=== PATIENT | female | born 1960 | race Caucasian/White ===

== ENCOUNTER 2017-05-24 08:00 | Inpatient (IN) | payer BC ==
--- NOTE | 2017-05-23 09:50 | HP ---
Satellite [facility] - Chief Complaint Chief Complaint: left hip pain - Past Medical History Allergies/Adverse Reactions: Allergies Allergy/AdvReac Type Severity Reaction Status Date / Time hepatitis B virus vaccine Allergy Severe FEVER, Verified 05/20/17 10:55 HEADACHE latex Allergy Severe Itching Verified 05/20/17 10:53 - Current Medications Current Medications: Home Medications Medication Instructions Recorded Ibuprofen 800 mg PO Q6H PRN 05/20/17 Naproxen Sodium [Aleve] 440 mg PO BID 05/20/17 Satellite Physical Exam - Physical Examination General Appearance: Well Nourished, Well Developed, Alert & Oriented x3 ENT: Clear Lung: Normal air movement Heart: Regular rate & rhythm Extremities: Other (left hip- + ttp, decr rom, nvi xrays show grade 4 hip djd) Neurological: Intact, Alert, Oriented Satellite Impression/Plan - Impression/Plan Impression: left hip djd Operative Procedure: left jacobo thr Date to be Performed: 05/24/17
[2017-05-24] MEDS ORDERED: CELECOXIB 200 MG CAPSULE PO ONE (08:58)
[2017-05-24] MEDS ORDERED: CEFAZOLIN 2 GM in DEXTROSE 5%-WATER - 50 ML IVPB ONE (08:58)
[2017-05-24] MEDS ORDERED: GABAPENTIN 300 MG CAPSULE (FP) PO ONE (08:58)
[2017-05-24] MEDS ORDERED: TRANEXAMIC ACID 1000 MG/10 ML VIAL IVPUSH ONE (08:58)
[2017-05-24] MEDS ORDERED: oxyCODONE HCL 10 MG SUSTAINED ACTING TABLET ONE (09:26)
[2017-05-24] MEDS ORDERED: oxyCODONE HCL 10 MG SUSTAINED ACTING TABLET PO ONE (09:35)
[2017-05-24 09:50] VITALS: BMI 33.3
[2017-05-24] MEDS ORDERED: DEXAMETHASONE SOD PHOSPHATE/PF 10 MG/ML SDV ONE (10:37)
[2017-05-24] MEDS ORDERED: ROPIVACAINE HCL 0.5% 30ML VIAL ONE (10:38)
[2017-05-24] MEDS ORDERED: MIDAZOLAM HCL 2 MG/2 ML SINGLE DOSE VIAL ONE (10:38)
[2017-05-24] MEDS ORDERED: ceFAZolin SODIUM 1 GM VIAL ONE (10:44)
[2017-05-24] MEDS ORDERED: VANCOMYCIN 1,000 MG VIAL (RESTRICTED TO ID ONLY) ONE (10:44)
[2017-05-24] MEDS ORDERED: VANCOMYCIN 1,000 MG VIAL (RESTRICTED TO ID ONLY) IVPB ONE (12:35)
[2017-05-24] MEDS ORDERED: MAG HYDROX/AL HYDROX/SIMETH 30 ML UNIT-DOSE CUP PO PRN (12:54)
[2017-05-24] MEDS ORDERED: ONDANSETRON 4 MG/2 ML VIAL IVPUSH PRN (12:54)
[2017-05-24] MEDS ORDERED: MAGNESIUM HYDROX 2400MG/30ML ORAL SUSPENSION 30 ML CUP PO PRN (12:54)
--- NOTE | 2017-05-24 12:56 | OP ---
Operative Note - Note: Operative Date: 05/24/17 (jensen) Pre-Operative Diagnosis: left hip djd Operation: left jacobo thr Post-Operative Diagnosis: Same as Pre-op Surgeon: Ramesh Mendosa Rubber Mixer: Jace Castellano Anesthesiologist/GOLF CART ATTENDANT: Iman Summers Anesthesia: Spinal, Local Specimens Removed: femoral head Estimated Blood Loss (mls): 200 Operative Report Dictated: Yes
[2017-05-24] MEDS ORDERED: LACTATED RINGERS SOLUTION 1,000 ML IV SCH (13:00)
[2017-05-24] MEDS ORDERED: ACETAMINOPHEN 325 MG TABLET (FP) PO ONE (14:15)
[2017-05-24] MEDS ORDERED: ACETAMINOPHEN 325 MG TABLET (FP) ONE (14:16)
[2017-05-24] MEDS ORDERED: oxyCODONE HCL 5 MG TABLET PO PRN (14:54)
[2017-05-24] MEDS ORDERED: oxyCODONE HCL 5 MG TABLET ONE (15:14)
[2017-05-24] MEDS: oxyCODONE HCL 5 MG TABLET PO PRN ×2 (15:15→18:38)
[2017-05-24] MEDS: ACETAMINOPHEN 325 MG TABLET (FP) PO SCH ×2 (15:25→22:08)
[2017-05-24] MEDS: CEFAZOLIN 2 GM/D5W 2 GM/50 ML ML IVPB SCH (21:00)
[2017-05-24] MEDS: oxyCODONE HCL 10 MG SUSTAINED ACTING TABLET PO SCH (22:07)
[2017-05-24] MEDS: GABAPENTIN 300 MG CAPSULE (FP) PO SCH (22:07)
[2017-05-24] MEDS: SENNOSIDES/DOCUSATE COMBO (SENNA PLUS) TABLET (UD) PO SCH (22:08)
[2017-05-25] MEDS: ACETAMINOPHEN 325 MG TABLET (FP) PO SCH ×4 (03:00→20:18)
[2017-05-25] MEDS: CEFAZOLIN 2 GM/D5W 2 GM/50 ML ML IVPB SCH (04:43)
[2017-05-25] MEDS: oxyCODONE HCL 5 MG TABLET PO PRN ×6 (06:42→23:19)
[2017-05-25 08:15] LABS: MCH 29.5 pg (25.7-33.7); MEAN CELL VOLUME 86.7 fl (80-96); PLATELET COUNT 226 K/MM3 (134-434); RDW 13.1 % (11.6-15.6); WHITE BLOOD COUNT 11.8 K/mm3 (4.0-10.8)
[2017-05-25] MEDS: ASPIRIN 325 MG TABLET PO SCH (08:27)
[2017-05-25] MEDS: PANTOPRAZOLE 40 MG TABLET (FP) PO SCH (09:13)
[2017-05-25] MEDS: GABAPENTIN 300 MG CAPSULE (FP) PO SCH ×2 (09:13→22:04)
[2017-05-25] MEDS: SENNOSIDES/DOCUSATE COMBO (SENNA PLUS) TABLET (UD) PO SCH ×2 (09:13→22:04)
[2017-05-25] MEDS: MULTIVITAMINS (DAILY MVI) TABLET (FP) PO SCH (09:13)
[2017-05-25] MEDS: oxyCODONE HCL 10 MG SUSTAINED ACTING TABLET PO SCH ×2 (09:16→22:03)
--- NOTE | 2017-05-25 09:49 | PN ---
Progress Note (short form) - Note Progress Note: Ortho Pt seen and examined s/p left jacobo thr pod #1 Selected Entries 05/25/17 05:24 Temperature 98.6 F Pulse Rate 72 Respiratory 18 Rate Blood Pressure 121/61 Laboratory Tests 05/25/17 07:45 WBC 11.8 H Hgb 12.6 Hct 37.2 Plt Count 226 dressing c/d/i, calf soft, nt nvi a/p PT hip precautions dvt ppx pain control d/c home tomorrow if stable
--- NOTE | 2017-05-25 09:51 | SPEC ---
DATE OF OPERATION: 05/24/2017 PREOPERATIVE DIAGNOSIS: Degenerative joint disease left hip. POSTOPERATIVE DIAGNOSIS: Degenerative joint disease left hip. PROCEDURE PERFORMED: Left total hip replacement with robotic-assisted navigation (MAKOplasty). SURGICAL ATTENDING: Ramesh Mendosa MD DINKEY LOCOMOTIVE OPERATOR: KEM Yadav ANESTHESIA: Regional and spinal. CLOSURE: A Grant total hip system with a 50 Press-Fit PSL cup, a 36-mm ceramic plus 7.5-mm head, and a number 6 Accolade II stem. Number 1 Vicryl for fascia, 0 and 2-0 subcutaneous, 3-0 Monocryl subcuticular, with skin glue for skin, 4-0 undyed Vicryl for pin sites. ESTIMATED BLOOD LOSS: 100 mL. COMPLICATIONS: None. CONDITION: To the recovery room in stable condition. DESCRIPTION OF PROCEDURE: The patient was taken to the operating room on May 24, 2017. General and regional anesthesia was administered by the anesthesiologist. IV Kefzol and TXA were administered prophylactically prior to the case. The patient was placed in the lateral decubitus position will all prominences well-padded. The left hip area was prepped and draped in the usual sterile fashion. Using 3 small stab incisions over the iliac crest, 3 threaded pins were drilled in power fashion through the 2 tables of the crest. These pins were fastened and the navigation array for the Virgil navigation system. Next, a 12 to 15-cm curved longitudinal incision over the posterolateral aspect of the greater trochanter was incised. Hemostasis was achieved with Bovie cautery. Sharp dissection was carried down to level of the fascia. The fascia was opened the entire length of the incision, spreading the fibers of the gluteus charlie in the direction of origin. A Charnley retractor was placed in this layer. Care was taken not to impale the sciatic nerve. The short external rotators were detached off the insertion of the greater trochanter and peeled off the capsule. A posterior capsulotomy was then performed. A check point was malleted into the greater trochanter and a point on the inferior pole of the patella was obtained as well. These 2 points were used to assess the preoperative offset and limb lengths of the hip. The hip was then dislocated. The femoral neck was then osteotomized down to the appropriate level as directed by the navigation device. Anterior and posterior retractors were placed, exposing the acetabulum. A circumferential labral excision was performed. A check point was malleted into the acetabulum as well. Multiple sites inside the acetabulum and around the rim were utilized to register the acetabulum with the navigation device. An excellent registration of less than 0.5 mm was obtained. The hip was then reamed with the appropriate reamer down to the appropriate depth, with the appropriate orientation and version as assessed on our preoperative plan for this patient. The reamer was removed and the acetabulum was inspected to have good bleeding surfaces throughout. The real acetabular cup was then malleted down into place, with the holes in the appropriate position, until an excellent fixation was obtained. No screws were necessary. The navigation device ensured appropriate orientation and version, with the depth as predetermined. The appropriate liner was then clipped into place. Attention was directed to the femur. The proximal femur was prepared by use a box chisel, a canal finder and serial broaches until the broach achieved excellent rigidity in the proximal femur with the appropriate version being applied. A calcar planer was used to smooth off the calcar flush with the trial components. A trial reduction with the appropriate head was done, and the hip was reduced. The hip was taken through a range of motion from full extension with external rotation to marked flexion, and was stable at 90 degrees of flexion. It was stable to marked abduction and internal rotation, with a positive hang test and negative telescoping. Limb lengths were ascertained visually as well as with the navigation device to be within the targeted range for this patient. The trial component was removed. The real component was then malleted into place. The head was cold welded to the trunnion, and the hip was reduced. Range of motion, stability and limb lengths were as described in the trial component. Then the hip was pulse antibiotic irrigated. Vancomycin powder was placed in the hip joint. The capsule was closed. The fascia was then closed as well using number 1 Vicryl interrupted suture, 0 and 2-0 subcutaneous, and 3-0 Monocryl subcuticular, skin glue for skin, 4-0 undyed Vicryl was used to close the pin sites after the pins were removed. All check points were also removed. Sterile Aquacel dressing was applied. The patient was awakened from anesthesia and transferred into the supine position. Bilateral SCDs and an abduction pillow were placed. X-rays revealed excellent position of the components. The patient was transferred to the recovery room in stable condition, with no complications. Estimated blood loss was less than 100 mL. Harley MCCOLLUM/[id number]
--- NOTE | 2017-05-25 10:17 | PN ---
Progress Note (short form) - Note Progress Note: 56F POD1 s/p left THR jacobo under spinal anesthetic with peripheral nerve blocks doing well. Pt states that pain is well controlled, reports no anesthetic complications. Motor function intact, slight numbness in blocked leg resolving.
[2017-05-26] MEDS: ACETAMINOPHEN 325 MG TABLET (FP) PO SCH ×3 (02:40→14:34)
[2017-05-26] MEDS: oxyCODONE HCL 5 MG TABLET PO PRN ×4 (02:40→14:34)
--- NOTE | 2017-05-26 08:19 | PN ---
Progress Note (short form) - Note Progress Note: Ortho Pt seen and examined s/p left jacobo thr pod #2 Selected Entries 05/26/17 06:35 Temperature 98.1 F Pulse Rate 97 H Respiratory 20 Rate Blood Pressure 126/63 Laboratory Tests 05/25/17 07:45 WBC 11.8 H Hgb 12.6 Hct 37.2 Plt Count 226 dressing c/d/i, calf soft, nt nvi a/p PT hip precautions dvt ppx pain control d/c home today f/u in 1 week
--- NOTE | 2017-05-26 08:20 | DS ---
Physical Examination Vital Signs: Vital Signs Temperature 98.1 F 05/26/17 06:35 Pulse Rate 97 H 05/26/17 06:35 Respiratory Rate 20 05/26/17 06:35 Blood Pressure 126/63 05/26/17 06:35 O2 Sat by Pulse Oximetry (%) 97 05/25/17 22:53 Labs: CBC, BMP 05/25/17 07:45 Discharge Summary Reason For Visit: OSTEOARTHRITIS Procedures: Principal: s/p left jacobo thr Hospital Course: admitted for elective left jacobo thr, uneventful post-op, stable for d/c Condition: Good - Instructions Diet, Activity, Other Instructions: Post-op Instructions-Total Hip Replacement Call the office for a follow-up appointment in 1 week - [phone] Aspirin 325mg daily for 6 weeks. Pain medication was sent into your pharmacy. Apply Graduated Compression Stockings (TEDs) to both lower extremities- remove daily for hygiene ONLY Apply Sequential Compression Device (SCDs) to both Lower extremities remove for PT and hygiene ONLY Apply cold packs to affected area for 15 minutes every 2 hours. Physical Therapist will come to your home for the first 5 days. You will be set up with outpatient PT at your first post-operative visit. Patient may ambulate as tolerated-encourage self care (at least every 2-3 hours while awake) with walker or cane Maintain Aquacel (waterproof) dressing to operative wound (will be removed by surgeon at first office visit) Shower with Aquacel dressing in place-if Aquacel integrity compromised, remove and apply dry sterile dressing and notify Orthopedist. DO NOT SHOWER unless Orthopedists approves without Aquacel dressing CONTACT THE OFFICE FOR ANY CHANGE IN YOUR CONDITION (for example-fever greater than 102 degrees, excessive bleeding from operative site, purulent drainage, severe swelling or pain) GO TO THE EMERGENCY ROOM IF THERE IS A MEDICAL EMERGENCY Hip Precautions: * Keep a rolled towel under affected heel while in bed or chair (to keep knee in extension) * Dependent upon approach: * Posterior - do not cross legs; do not sit on low chairs or toilets. * If you have any questions, please do not hesitate to call the office - . Referrals: Ramesh Mendosa MD [Staff Physician] - Disposition: VNS/HOME HEALTH CARE - Home Medications Comprehensive Discharge Medication List: Ambulatory Orders Naproxen Sodium [Aleve] 440 mg PO BID 05/20/17 Aspirin [ASA -] 325 mg PO DAILY@0800 tablet 05/24/17 Oxycodone HCl/Acetaminophen [Percocet 5-325 mg Tablet] 1 - 2 tab PO Q6H #50 tab MDD 8 05/24/17 Gabapentin [Neurontin] 300 mg PO BID #40 capsule 05/26/17
[2017-05-26] MEDS: ASPIRIN 325 MG TABLET PO SCH (09:05)
[2017-05-26 09:46] VITALS: BP 114/61; PULSE 98; TEMP 99.2
[2017-05-26] MEDS: oxyCODONE HCL 10 MG SUSTAINED ACTING TABLET PO SCH (09:47)
[2017-05-26] MEDS: SENNOSIDES/DOCUSATE COMBO (SENNA PLUS) TABLET (UD) PO SCH (09:47)
[2017-05-26] MEDS: PANTOPRAZOLE 40 MG TABLET (FP) PO SCH (09:47)
[2017-05-26] MEDS: GABAPENTIN 300 MG CAPSULE (FP) PO SCH (09:47)
[2017-05-26] MEDS: MULTIVITAMINS (DAILY MVI) TABLET (FP) PO SCH (09:47)
[2017-05-26 10:00] LABS: MCH 29.3 pg (25.7-33.7); MCHC 33.9 g/dl (32.0-36.0); MEAN CELL VOLUME 86.6 fl (80-96); MEAN PLT VOLUME 8.3 fl (7.5-11.1); PLATELET COUNT 191 K/MM3 (134-434); RDW 13.5 % (11.6-15.6); WHITE BLOOD COUNT 10.2 K/mm3 (4.0-10.8)
--- NOTE | 2017-05-27 17:37 | PATH ---
Surgical Pathology Report Patient Name: BARRY NOVOA Med. Rec. #: [id number] /Age/Gender: 1960 (Age: 56) / F Account: [id number] Location: [facility] MED-SURG Taken: 05/24/2017 Received: 05/25/2017 Reported: 05/27/2017 Physicians: Ramesh Mendosa M.D. Specimen(s) Received LEFT HIP FEMORAL HEAD Clinical History Left hip osteoarthritis Final Diagnosis FEMORAL HEAD, LEFT, TOTAL HIP REPLACEMENT: DEGENERATIVE JOINT DISEASE. Electronically Signed Alba Lal M.D. Gross Description Received in formalin, labeled "left femoral head," is a 4.5 x 4.5 x 4.2 cm. femoral head with 1.9 cm in length portion of purple black attached. The margin of resection is smooth. There is a 1.1 cm in greatest dimension area of eburnation present. The remaining articular surface is bass-yellow and diffusely granular. The underlying trabecular bone is yellow and hard. A publications sales representative section is submitted in one cassette, following decalcification. 05/25/2017 [facility]05/25/2017
== END 2017-05-26 16:37 | disposition home health service (06) | DRG 470 ==
LOC: FM/S 08:44
PROVIDERS: ADMIT Orthopaedic Surgery; ATTEND Orthopaedic Surgery
PROC: 8E0W0CZ Robotic Assisted Procedure of Trunk Region, Open Approach (ICD-10-PCS; 2017-05-24)
PROC: 0SRB03A Replacement of Left Hip Joint with Ceramic Synthetic Substitute, Uncemented, Open Approach (ICD-10-PCS; principal; 2017-05-24 11:49)
DX: M16.12 Unilateral primary osteoarthritis, left hip (principal)
CPT/HCPCS: 36415; 73502-TC-LT; 85027; 88305-TC; 88311-TC; 94010; 94760; 97116-GP; 97162-GP